=== PATIENT | male | born 1945 | race Caucasian/White ===

== ENCOUNTER 2017-03-23 17:35 | Inpatient (IN) | payer MEDICARE, BC ==
[~2017-03-23] VITALS: Ht 177.8 cm; Wt 99.0 kg
[~2017-03-23 17:35] MED LIST: ALBUTEROL S2.5 MG/.5 IN; ALDACTONE25 MG PO; ARICEPT5 MG PO; B-1100 MG PO; B121000 MCG PO; B6 NATURAL100 MG PO; BD PEN NEEDL32 GX4MM SC; CEPHALEXIN500 MG OR; CLARITIN10 M1 OR; CLONIDINE0.1 MG PO; COLCHICINE0.6 MG OR; DONEPEZIL5 MG PO; DOXEPIN HCL10 MG PO; FISH OIL1000 MG PO; FLONASE0.05 %; FOLIC ACID1 MG PO; FREESTYLELITE100 SC; HUMALOG100 MG/ML SC; INDERAL10 M1 PO; INDERAL10 MG PO; JANUVIA100 MG OR; JANUVIA100 MG PO; JANUVIA50 MG OR; LANTUS SOLOSTAR SC; LANTUS100 MG/ML; LANTUS100 MG/ML SC; LASIX 20 MG20 MG/TAB PO; LEVOTHYROXIN50 MCG OR; LEVOTHYROXIN50 MCG PO; LOPRESSOR25 MG PO; LUTEIN1 CAP OR; MAGNESIUM300 MG PO; MEDDOSEPAK PO; METFORMIN850 MG PO; METOPROL TAR25 M1 OR; METOPROL TAR25 M1 PO; METOPROLOL TART50 MG PO; METOPROLOL50 MG OR; MULTIVITAL-M OR; NAMENDA10 MG PO; NIACIN250 M4 PO; NOVOLO1 SC; PAROXETINE20 MG OR; PAROXETINE20 MG PO; PENTOXIFYLLI400 MG PO; PROTONIX40 MG OR; TESTIM1 % EX; ULORIC40 MG PO; VALIUM10 MG OR; VITAMIN B 12100 MCG OR; [UNRECOGNIZED DRUG - CODE] SC; [UNRECOGNIZED DRUG - OTHER] SC; [UNRECOGNIZED DRUG - SUPPLY] SC
[2017-03-23 18:12] VITALS: BP 114/70; BP 117/70
--- NOTE | 2017-03-23 19:20 | NUR ---
PT.RESTING IN BED W/FAMILY AT BS; DENIES ANY DISTRESS OR DISCOMFORT AT THIS TIME; DENIES N/V; POC DISCUSSED, JUST LEFT SEEING PT.; WILL F/UP W/ASSESSMENT/ADMISSION
[2017-03-23 19:55] LABS: HEMATOCRIT 33.2 % (39.0-50.0); HEMOGLOBIN 10.7 g/dl (14.0-18.0); IMMATURE GRANULOCYTES 0.7 % (0.0-1.0); MEAN CORPUSCULAR HGB 29.3 pG CALC (26.0-32.0); MEAN CORPUSCULAR HGB CONC 32.2 g/L CALC (32.0-36.0); NEUT# 8.72 thou/uL (1.82-7.42); RED BLOOD COUNT 3.65 mill/uL (4.70-6.10)
[2017-03-23 20:10] LABS: ALBUMIN 3.5 g/dL (3.2-5.0); ALKALINE PHOSPHATASE 95 u/l (38-126); ANION GAP 19 (6-22 (CALC)); BILIRUBIN, TOTAL 1.7 mg/dL (0.0-1.4); BUN 60 mg/dL (8-23); BUN/CREATININE RATIO 52 (12-20 (CALC)); CALCIUM 9.6 mg/dL (8.4-10.2); CARBON DIOXIDE 22 mmol/l (22-30); CHLORIDE 105 mmol/l (95-108); CREATININE 1.2 mg/dL (0.7-1.3); GFR 60 ML/MIN (>=60 (CALC)); GFR FOR AFR.AMER. > 60 ML/MIN (>=60 (CALC)); GLUCOSE 161 mg/dL (82-115); SGOT/AST 35 u/l (19-48); SGPT/ALT 33 u/l (11-66); SODIUM 140 mmol/l (137-146); TOTAL PROTEIN 7.8 g/dL (6.3-8.2)
[2017-03-23 20:11] LABS: POTASSIUM 5.5 mmol/l (3.5-5.1)
--- NOTE | 2017-03-23 20:25 | NUR ---
PT.ASSESSED,POC DISCUSSED W/PT., NO DISTRESS AT THIS TIME, DENIES ANY NEEDS; FAMILY NO LONGER AT BS
[2017-03-24] VITALS (10 sets, daily range): BP systolic 98–123; BP diastolic 46–68
--- NOTE | 2017-03-24 03:31 | NUR ---
PT.JUST CALLED TO REPORT HE VOMITED BLOOD; PT.VOMITED LARGE AMOUNT OF WHAT APPEARED TO BE COAGULATED BLOOD CLOTS, APPROX.600CC; NG TUBE WILL BE PLACED AND BLOOD ORDERED @2UNITS PER 'S ORDERS; PT.IS NOW BACK IN BE RESTING.
--- NOTE | 2017-03-24 04:36 | NUR ---
NG TUBE PLACED, PT.TOLERATED PROCEDURE WELL, SUCTION SET AT LIS; PT.VOMITED 150CC ADDITIONAL CONGEALED BLOODY EMESIS JUST PRIOR TO PROCEDURE. PT.RESTING NOW, DENIES FURTHER NEEDS, CALL LIGHT W/IN REACH AND PT.INSTRUCTED TO CALL FOR ANY NEEDS THAT MAY ARISE
[2017-03-24 05:17] LABS: ALBUMIN 3.3 g/dL (3.2-5.0); ALKALINE PHOSPHATASE 92 u/l (38-126); AMYLASE 58 u/l (30-110); ANION GAP 18 (6-22 (CALC)); BILIRUBIN, TOTAL 1.4 mg/dL (0.0-1.4); BUN 71 mg/dL (8-23); BUN/CREATININE RATIO 54 (12-20 (CALC)); CALCIUM 9.2 mg/dL (8.4-10.2); CARBON DIOXIDE 20 mmol/l (22-30); CHLORIDE 107 mmol/l (95-108); CREATININE 1.3 mg/dL (0.7-1.3); GFR 54 ML/MIN (>=60 (CALC)); GFR FOR AFR.AMER. > 60 ML/MIN (>=60 (CALC)); GLUCOSE 133 mg/dL (82-115); LIPASE 152 u/l (23-300); SGOT/AST 33 u/l (19-48); SGPT/ALT 33 u/l (11-66); SODIUM 139 mmol/l (137-146); TOTAL PROTEIN 7.5 g/dL (6.3-8.2)
[2017-03-24 05:19] LABS: POTASSIUM 5.6 mmol/l (3.5-5.1)
[2017-03-24 05:24] LABS: HEMATOCRIT 27.8 % (39.0-50.0); HEMOGLOBIN 9.2 g/dl (14.0-18.0); IMMATURE GRANULOCYTES 0.5 % (0.0-1.0); MEAN CELL VOLUME 89.7 fL CALC (80.0-100.0); MEAN CORPUSCULAR HGB 29.7 pG CALC (26.0-32.0); MEAN CORPUSCULAR HGB CONC 33.1 g/L CALC (32.0-36.0); NEUT# 9.45 thou/uL (1.82-7.42); RED BLOOD COUNT 3.1 mill/uL (4.70-6.10); RED CELL DISTRI WIDTH 16.1 % (11.5-15.5)
[2017-03-24 05:27] LABS: ACT PARTIAL THROMBO TIME 29.4 SECONDS (20.0-32.5); INTERNATIONAL NORMALIZED RATIO 1.2 RATIO (0.7-1.3); PROTHROMBIN TIME 12.9 SECONDS (9.0-12.5)
--- NOTE | 2017-03-24 05:30 | NUR ---
PT.UP TO BSC, LARGE BLACK STOOL OBSERVED; PT.BACK TO BED W/NGT SUCTIONING LIS DARK THICK FLUID; CALL LIGHT W/IN REACH
--- NOTE | 2017-03-24 07:20 | NUR ---
REPORT RECEIVED FROM YAMILEX MENDIOLA. PT SITTING IN SEMI-FOWLERS POSITION. NGT TO LIWS, DRAINING MAROON FLUID. PT DENIES PAIN. NO NAUSEA. REPORTING OF CONCERNS ENCOURAGED. PLAN OF CARE DISCUSSED. CALL LIGHT REVIEWED AND IN REACH. PT STATES UNDERSTANDING.
--- NOTE | 2017-03-24 08:45 | NUR ---
200 ML EMESIS OF BLOOD W/ CLOTS AT THIS TIME.
--- NOTE | 2017-03-24 09:24 | NUR ---
1ST UNIT OF PRBC'S STARTED AT THIS TIME. PT EDUCATED ON POSSIBLE S/S OF REACTION TO TRANSFUSION. PT STATES UNDERSTANDING. COMMUNICATION INSTRUCTOR AT BEDSIDE FOR MONITORING.
--- NOTE | 2017-03-24 10:25 | NUR ---
PT DENIES S/S OF REACTION TO TRANSFUSION. NO SOB NOTED. WILL CONTINUE TO MONITOR.
--- NOTE | 2017-03-24 11:58 | NUR ---
2ND UNIT OF PRBC'S STARTED AT THIS TIME. NO SOB NOTED. PT DENIES PAIN. WILL CONTINUE TO MONITOR.
--- NOTE | 2017-03-24 15:25 | NUR ---
2ND UNIT PRBC'S FINISHED. PT TOLERATED WELL. SLEEPING AT THIS TIME. WILL CONTINUE TO MONITOR.
[2017-03-24 16:22] LABS: HEMATOCRIT 31.1 % (39.0-50.0); IMMATURE GRANULOCYTES 0.6 % (0.0-1.0); MEAN CELL VOLUME 90.7 fL CALC (80.0-100.0); MEAN CORPUSCULAR HGB 29.2 pG CALC (26.0-32.0); MEAN CORPUSCULAR HGB CONC 32.2 g/L CALC (32.0-36.0); NEUT# 6.16 thou/uL (1.82-7.42); RED BLOOD COUNT 3.43 mill/uL (4.70-6.10)
[2017-03-24 16:31] LABS: CALCIUM 8.8 mg/dL (8.4-10.2); CREATININE 1.5 mg/dL (0.7-1.3)
[2017-03-24 16:43] LABS: POTASSIUM 5.4 mmol/l (3.5-5.1)
--- NOTE | 2017-03-24 17:30 | NUR ---
PT SLEEPING. VISITOR AT BEDSIDE. STILL AWAITING BED ASSIGNMENT FROM [facility].
[2017-03-24 20:15] LABS: HEMATOCRIT 30.6 % (39.0-50.0); IMMATURE GRANULOCYTES 0.6 % (0.0-1.0); MEAN CELL VOLUME 89.2 fL CALC (80.0-100.0); MEAN CORPUSCULAR HGB 29.2 pG CALC (26.0-32.0); MEAN CORPUSCULAR HGB CONC 32.7 g/L CALC (32.0-36.0); NEUT# 5.91 thou/uL (1.82-7.42); RED BLOOD COUNT 3.43 mill/uL (4.70-6.10); RED CELL DISTRI WIDTH 16.2 % (11.5-15.5)
--- NOTE | 2017-03-24 21:00 | NUR ---
PT APPEARS TO BE SLEEPING IN SEMI FOWLERS POSITION;PT WAKES EASILY;CONTACT PRECAUTIONS IN PLACE FOR MRSA;IV SITE INFUSING WELL TO RT WRIST;IV SITE TO RT FOREARM FLUSHED AND PATENT;PT DENIES ANY PAIN OR NAUSEA AT THIS TIME;PLACEMENT CHECKED ON NG TUBE WHICH IS HOOKED UP TO LIS;BROWN/GREEN DRAINAGE NOTED;TELE MONITOR IN PLACE;ASSESSMENT COMPLETED;MRSA SWAB COLLECTED FROM LEFT NARE;PT DENIES ANY NEEDS AT THIS TIME;PT EDUCATED TO CALL FOR ASSISTANCE IF NEEDED;BED IN LOWEST POSITION WITH CALL LIGHT IN REACH;WILL CONTINUE TO MONITOR
--- NOTE | 2017-03-24 22:15 | NUR ---
CALL RECEIVED FROM TRANSFER CENTER;PT TO BE TRANSFERED TO [facility] ROOM 210 BED 1;PT NOTIFIED AND VERBALIZES UNDERSTANDING
--- NOTE | 2017-03-24 23:12 | NUR ---
PT TRANSFERRED VIA STRETCHER IN STABLE CONDITION WITH [facility] AT THIS TIME
== END 2017-03-24 23:15 | DRG 378 ==
LOC: MS2 17:35
PROVIDERS: ADMIT Internal Medicine Geriatric Medicine; ATTEND Internal Medicine Geriatric Medicine
PROC: 30233N1 Transfusion of Nonautologous Red Blood Cells into Peripheral Vein, Percutaneous Approach (ICD-10-PCS; principal; 2017-03-24)
PROC: 30233N1 Transfusion of Nonautologous Red Blood Cells into Peripheral Vein, Percutaneous Approach (ICD-10-PCS; 2017-03-24)
PROC: 0D9670Z Drainage of Stomach with Drainage Device, Via Natural or Artificial Opening (ICD-10-PCS; 2017-03-24)
DX: K92.0 Hematemesis (principal); K76.6 Portal hypertension; E11.22 Type 2 diabetes mellitus with diabetic chronic kidney disease; E11.43 Type 2 diabetes mellitus with diabetic autonomic (poly)neuropathy; K31.84 Gastroparesis; D69.59 Other secondary thrombocytopenia; I12.9 Hypertensive chronic kidney disease with stage 1 through stage 4 chronic kidney disease, or unspecified chronic kidney disease; N18.9 Chronic kidney disease, unspecified; K70.30 Alcoholic cirrhosis of liver without ascites; K92.1 Melena; I85.10 Secondary esophageal varices without bleeding; M19.90 Unspecified osteoarthritis, unspecified site; I25.10 Atherosclerotic heart disease of native coronary artery without angina pectoris; Z87.11 Personal history of peptic ulcer disease
CPT/HCPCS: J2354; P9016; S0164

== ENCOUNTER 2017-04-01 10:55 | Inpatient (IN) | payer MEDICARE, BC ==
[~2017-04-01] VITALS: Ht 180.3 cm; Wt 99.6 kg
--- NOTE | 2017-04-01 11:11 | NUR ---
PT ARRIVED TO FLOOR VIA WHEELCHAIR ACCOMPANIED BY VOLUNTEER. PT AMBULATES TO BED. STEADY GAIT. GENERALIZED WEAKNESS REPORTED. FALL PRECAUTIONS REINFORCED. PLAN OF CARE DISCUSSED. PT DENIES PAIN. REPORTING OF CONCERNS ENCOURAGED. CALL LIGHT REVIEWED AND IN REACH. PT STATES UNDERSTANDING.
[2017-04-01 11:21] VITALS: BP 122/68
[2017-04-01] MEDS ORDERED: ALDACTONE25 MG PO (11:34)
[2017-04-01] MEDS ORDERED: PAROXETINE20 MG PO (11:38)
[2017-04-01] MEDS ORDERED: FOLIC ACID1 MG PO (11:40)
[2017-04-01] MEDS ORDERED: FERROUS SULF325 M3 PO (11:40)
[2017-04-01] MEDS ORDERED: KRISTALOSE20 GM PO (11:41)
[2017-04-01] MEDS ORDERED: PROTONIX40 M2 PO (11:42)
[2017-04-01] MEDS ORDERED: MULTIVITAMI9 PO (11:42)
[2017-04-01] MEDS ORDERED: PRANDIN1 MG PO (11:43)
[2017-04-01] MEDS ORDERED: HUMALOG100 MG/ML SC (11:47)
[2017-04-01 11:59] LABS: HEMATOCRIT 30.7 % (39.0-50.0); HEMATOCRIT 31.1 % (39.0-50.0); HEMOGLOBIN 10.1 g/dl (14.0-18.0); IMMATURE GRANULOCYTES 0.4 % (0.0-1.0); MEAN CORPUSCULAR HGB 29.3 pG CALC (26.0-32.0); MEAN CORPUSCULAR HGB CONC 32.6 g/L CALC (32.0-36.0); NEUT# 6.91 thou/uL (1.82-7.42); RED BLOOD COUNT 3.41 mill/uL (4.70-6.10); RED CELL DISTRI WIDTH 17.6 % (11.5-15.5)
[2017-04-01 12:09] LABS: ANION GAP 14 (6-22 (CALC)); BUN 30 mg/dL (8-23); BUN/CREATININE RATIO 26 (12-20 (CALC)); CALCIUM 8.7 mg/dL (8.4-10.2); CARBON DIOXIDE 24 mmol/l (22-30); CHLORIDE 104 mmol/l (95-108); CREATININE 1.2 mg/dL (0.7-1.3); GFR 60 ML/MIN (>=60 (CALC)); GFR FOR AFR.AMER. > 60 ML/MIN (>=60 (CALC)); GLUCOSE 152 mg/dL (82-115); POTASSIUM 4.2 mmol/l (3.5-5.1); SODIUM 137 mmol/l (137-146)
[2017-04-01 16:15] LABS: URINE BILIRUBIN - DIPSTICK NEGATIVE (NEGATIVE); URINE BLOOD DIPSTICK NEGATIVE (NEGATIVE); URINE CLARITY CLEAR; URINE COLOR YELLOW; URINE GLUCOSE - DIPSTICK NEGATIVE (NEGATIVE); URINE KETONE NEGATIVE (NEGATIVE); URINE LEUK ESTERASE NEGATIVE (NEGATIVE); URINE NITRITE - DIPSTICK NEGATIVE (Negative); URINE PROTEIN - DIPSTICK NEGATIVE (NEG-TRACE)
[2017-04-01 16:16] VITALS: BP 126/71
[2017-04-01 17:31] LABS: HEMATOCRIT 30.1 % (39.0-50.0); HEMOGLOBIN 9.9 g/dl (14.0-18.0)
[2017-04-01 18:25] LABS: ALKALINE PHOSPHATASE 88 u/l (38-126); ANION GAP 12 (6-22 (CALC)); BILIRUBIN, TOTAL 1.6 mg/dL (0.0-1.4); BUN 28 mg/dL (8-23); BUN/CREATININE RATIO 29 (12-20 (CALC)); CALCIUM 8.2 mg/dL (8.4-10.2); CARBON DIOXIDE 22 mmol/l (22-30); CHLORIDE 105 mmol/l (95-108); GFR > 60 ML/MIN (>=60 (CALC)); GFR FOR AFR.AMER. > 60 ML/MIN (>=60 (CALC)); GLUCOSE 186 mg/dL (82-115); POTASSIUM 4.6 mmol/l (3.5-5.1); SGOT/AST 60 u/l (19-48); SGPT/ALT 38 u/l (11-66); SODIUM 136 mmol/l (137-146); TOTAL PROTEIN 7.2 g/dL (6.3-8.2)
--- NOTE | 2017-04-01 18:33 | NUR ---
PT SITTING UPRIGHT IN BED. DENIES PAIN. NO COMPLAINTS. CALL LIGHT WITHIN REACH.
[2017-04-01 19:15] VITALS: BP 106/65
--- NOTE | 2017-04-01 19:31 | NUR ---
PATIENT SITTING IN BED READING NEWSPAPER AT THIS TIME WITH O2 VIA NASAL CANNULA IN PLACE. ALERT AND ORIENTEDX3. IVF NS PATENT AND INFUSING RIGHT FOREARM. SITE APPEARS HEALTHY AT THIS TIME. CALL LIGHT IN REACH. WILL CONT TO MONITOR.
--- NOTE | 2017-04-01 20:34 | NUR ---
INDERAL HELD DUE TO HR-54 AND BP-[id number]/65. EXPLAINED TO THE PATIENT WHY THE MEDICATION WAS HELD. CALL LIGHT IN REACH. WILL CONT TO MONITOR.
[2017-04-01 23:45] VITALS: BP 92/54
[2017-04-02] VITALS (10 sets, daily range): BP systolic 90–140; BP diastolic 51–72
--- NOTE | 2017-04-02 00:08 | NUR ---
PATIENT SITTING UP ON THE SIDE OF THE BED WITH NO COMPLAINTS AT THIS TIME. VS TAKEN AND RECORDED. IVF PATENT AND INFUSING WELL RIGHT FOREARM SITE. CALL LIGHT IN REACH. WILL CONT TO MONITOR.
--- NOTE | 2017-04-02 02:53 | NUR ---
URINAL EMPTIED FOR 400CC OF MARU URINE. PATIENT PROVIDED WITH ANOTHER BLANKET PEPATIENT REQUEST. CALL LIGHT IN REACH. WILL CONT TO MONITOR.
[2017-04-02 05:43] LABS: ALBUMIN 2.6 g/dL (3.2-5.0); ALKALINE PHOSPHATASE 83 u/l (38-126); ANION GAP 11 (6-22 (CALC)); BUN 25 mg/dL (8-23); BUN/CREATININE RATIO 24 (12-20 (CALC)); CALCIUM 8.1 mg/dL (8.4-10.2); CARBON DIOXIDE 23 mmol/l (22-30); CHLORIDE 109 mmol/l (95-108); GFR > 60 ML/MIN (>=60 (CALC)); GFR FOR AFR.AMER. > 60 ML/MIN (>=60 (CALC)); GLUCOSE 148 mg/dL (82-115); POTASSIUM 4.3 mmol/l (3.5-5.1); SGOT/AST 28 u/l (19-48); SGPT/ALT 33 u/l (11-66); SODIUM 138 mmol/l (137-146); TOTAL PROTEIN 6.5 g/dL (6.3-8.2)
[2017-04-02 05:59] LABS: HEMATOCRIT 26.1 % (39.0-50.0); HEMOGLOBIN 8.4 g/dl (14.0-18.0); IMMATURE GRANULOCYTES 0.5 % (0.0-1.0); MEAN CELL VOLUME 90.3 fL CALC (80.0-100.0); MEAN CORPUSCULAR HGB 29.1 pG CALC (26.0-32.0); MEAN CORPUSCULAR HGB CONC 32.2 g/L CALC (32.0-36.0); NEUT# 3.98 thou/uL (1.82-7.42); RED BLOOD COUNT 2.89 mill/uL (4.70-6.10); RED CELL DISTRI WIDTH 17.2 % (11.5-15.5)
--- NOTE | 2017-04-02 07:22 | NUR ---
PT TO CT VIA WC ACCOMPANIED BY STAFF;
--- NOTE | 2017-04-02 07:40 | NUR ---
PT RETURN FROM RADIOLOGY VIA WC ACCOMPANIED BY STAFF; AMBULATORY TO BED WITHOUT DIFFICULTY; PT DENIES PAIN; TELE MONITOR IN PLACE; CALL ROMAN WITHIN REACH; WILL CONTINUE TO MONITOR.
--- NOTE | 2017-04-02 08:32 | NUR ---
DR. MARTIN IN TO SEE PT; PLAN OF CARE DISCUSSED.
--- NOTE | 2017-04-02 11:08 | NUR ---
PRBC INFUSION STARTED AT THIS TIME; INSTRUCTED PT ON S/SX OF REACTION; PT VERBALIZE UNDERSTANDING OF SAME; CALL ROMAN WITHIN REACH; WILL CONTINUE TO MONITOR.
--- NOTE | 2017-04-02 13:18 | NUR ---
FIRST UNIT PRBC COMPLETE; PT DENIES PAIN, SOB; VSS; TELE MONITOR IN PLACE; CALL ROMAN WITHIN REACH; WILL CONTINUE TO MONITOR.
--- NOTE | 2017-04-02 13:33 | NUR ---
SECOND UNIT PRBC INFUSION STARTED AT THIS TIME; REINFORCED TO PT S/SX OF REACTION; PT VERBALIZE UNDERSTANDING OF SAME; CALL ROMAN WITHIN REACH; WILL CONTINUE TO MONITOR.
--- NOTE | 2017-04-02 16:26 | NUR ---
PT HAVING 2ND UNIT OF BLOOD TOLERATING WELL IV SITE IS FREE FROM REDNESS OR EDEMA. CONTINUE TO OBSERVE AND MONITOR.
--- NOTE | 2017-04-02 19:45 | NUR ---
PT. SITTING UP IN BED WITH NO DISTRESS NOTED. ASSESSMENT COMPLETED. IV SITE PATENT TO RFA AND ORDERED IVF INFUSING. PT. DENIES NEEDS/PAIN. UPDATED WITH POC. ENCOURAGED TO CALL FOR ANY NEEDS. CALL LIGHT IS IN REACH. WILL CONTINUE TO MONITOR.
--- NOTE | 2017-04-02 23:00 | NUR ---
PT. RESTING IN BED ON RIGHT SIDE WITH EYES CLOSED, NO DISTRESS NOTED. RESP EVEN AND UNLABORED. CALL LIGHT IS IN REACH.
[2017-04-03 00:05] VITALS: BP 100/49
--- NOTE | 2017-04-03 03:20 | NUR ---
PT. RESTING IN BED WITH EYES CLOSED, NO DISTRESS NOTED. RESP EVEN AND UNLABORED. CALL LIGHT IS IN REACH. WILL CONTINUE TO MONITOR.
[2017-04-03 05:00] VITALS: BP 102/61
[2017-04-03 05:39] LABS: HEMATOCRIT 31.2 % (39.0-50.0); HEMOGLOBIN 10.3 g/dl (14.0-18.0); IMMATURE GRANULOCYTES 0.3 % (0.0-1.0); MEAN CELL VOLUME 89.1 fL CALC (80.0-100.0); MEAN CORPUSCULAR HGB 29.4 pG CALC (26.0-32.0); NEUT# 4.39 thou/uL (1.82-7.42); RED BLOOD COUNT 3.5 mill/uL (4.70-6.10)
[2017-04-03 05:46] LABS: ACT PARTIAL THROMBO TIME 29.4 SECONDS (20.0-32.5); INTERNATIONAL NORMALIZED RATIO 1.1 RATIO (0.7-1.3); PROTHROMBIN TIME 12.4 SECONDS (9.0-12.5)
[2017-04-03 06:49] LABS: ALBUMIN 2.6 g/dL (3.2-5.0); ALKALINE PHOSPHATASE 101 u/l (38-126); ANION GAP 9 (6-22 (CALC)); BILIRUBIN, TOTAL 1.6 mg/dL (0.0-1.4); BUN 25 mg/dL (8-23); BUN/CREATININE RATIO 27 (12-20 (CALC)); CALCIUM 8.3 mg/dL (8.4-10.2); CARBON DIOXIDE 21 mmol/l (22-30); CHLORIDE 111 mmol/l (95-108); CREATININE 0.9 mg/dL (0.7-1.3); GFR > 60 ML/MIN (>=60 (CALC)); GFR FOR AFR.AMER. > 60 ML/MIN (>=60 (CALC)); GLUCOSE 141 mg/dL (82-115); POTASSIUM 4.2 mmol/l (3.5-5.1); SGOT/AST 31 u/l (19-48); SGPT/ALT 29 u/l (11-66); SODIUM 137 mmol/l (137-146); TOTAL PROTEIN 6.6 g/dL (6.3-8.2)
--- NOTE | 2017-04-03 07:05 | NUR ---
REPORT RECEIVED FROM ORESTES PERALTA NURSE. PT.UPRIGHT IN BED AWAKE, DENIES ANY NEEDS AT THIS TIME.
[2017-04-03 08:00] VITALS: BP 128/63
--- NOTE | 2017-04-03 08:07 | NUR ---
PT.MEDICATED W/MORNING MEDICATIONS AND ASSESSED; SITTING ON BEDSIDE W/BREAKFAST AND FAMILY JUST ARRIVED AT BS.
[2017-04-03] MEDS ORDERED: LEVOTHYROXIN50 MCG PO (14:25)
[2017-04-03] MEDS ORDERED: ULORIC40 MG PO (14:25)
[2017-04-03] MEDS ORDERED: NIACIN250 M4 PO (14:25)
[2017-04-03 14:39] VITALS: BP 106/56
[2017-04-03 14:41] VITALS: BP 106/56
--- NOTE | 2017-04-03 16:10 | NUR ---
PT.OFF FLOOR ACCOMPANIED BY FAMILY AND ANTON MCGILL. PT.IS STABLE AT TIME OF DC AND TRANSPORTED VIA WC
== END 2017-04-03 16:09 | disposition home or self-care (01) | DRG 433 ==
LOC: ENPENDDIS → MS2 10:55
PROVIDERS: ADMIT Internal Medicine Geriatric Medicine; ATTEND Internal Medicine Geriatric Medicine
PROC: 30233N1 Transfusion of Nonautologous Red Blood Cells into Peripheral Vein, Percutaneous Approach (ICD-10-PCS; principal; 2017-04-02)
PROC: 30233N1 Transfusion of Nonautologous Red Blood Cells into Peripheral Vein, Percutaneous Approach (ICD-10-PCS; 2017-04-02)
PROC: 0W993ZZ Drainage of Right Pleural Cavity, Percutaneous Approach (ICD-10-PCS; 2017-04-03)
DX: K74.60 Unspecified cirrhosis of liver (principal); N17.9 Acute kidney failure, unspecified; J91.8 Pleural effusion in other conditions classified elsewhere; I85.10 Secondary esophageal varices without bleeding; K76.6 Portal hypertension; E86.0 Dehydration; D50.0 Iron deficiency anemia secondary to blood loss (chronic); E11.22 Type 2 diabetes mellitus with diabetic chronic kidney disease; I12.9 Hypertensive chronic kidney disease with stage 1 through stage 4 chronic kidney disease, or unspecified chronic kidney disease; N18.9 Chronic kidney disease, unspecified; I25.10 Atherosclerotic heart disease of native coronary artery without angina pectoris; M19.90 Unspecified osteoarthritis, unspecified site
CPT/HCPCS: G0378; G0379; P9016

== ENCOUNTER 2017-04-12 13:45 | Inpatient (IN) | payer MEDICARE, BC ==
[~2017-04-12] VITALS: Ht 177.8 cm; Wt 99.0 kg
[2017-04-12] VITALS (12 sets, daily range): BP systolic 82–148; BP diastolic 44–77
[~2017-04-12 13:45] MED LIST changes: +FERROUS SULF325 M3 PO; +KRISTALOSE20 GM PO; +MULTIVITAMI9 PO; +PRANDIN1 MG PO; +PROTONIX40 M2 PO
[2017-04-12 17:34] LABS: HEMATOCRIT 30.9 % (39.0-50.0); HEMOGLOBIN 9.9 g/dl (14.0-18.0); MEAN CELL VOLUME 92.2 fL CALC (80.0-100.0); MEAN CORPUSCULAR HGB 29.6 pG CALC (26.0-32.0); RED BLOOD COUNT 3.35 mill/uL (4.70-6.10); RED CELL DISTRI WIDTH 17.4 % (11.5-15.5)
[2017-04-12 17:48] LABS: INTERNATIONAL NORMALIZED RATIO 1.1 RATIO (0.7-1.3); PROTHROMBIN TIME 12.1 SECONDS (9.0-12.5)
[2017-04-12 17:49] LABS: ALBUMIN 3.3 g/dL (3.2-5.0); ALKALINE PHOSPHATASE 144 u/l (38-126); ANION GAP 15 (6-22 (CALC)); BILIRUBIN, TOTAL 1.3 mg/dL (0.0-1.4); BUN 34 mg/dL (8-23); BUN/CREATININE RATIO 29 (12-20 (CALC)); CALCIUM 9.1 mg/dL (8.4-10.2); CARBON DIOXIDE 22 mmol/l (22-30); CHLORIDE 105 mmol/l (95-108); CREATININE 1.2 mg/dL (0.7-1.3); GFR 60 ML/MIN (>=60 (CALC)); GFR FOR AFR.AMER. > 60 ML/MIN (>=60 (CALC)); GLUCOSE 214 mg/dL (82-115); POTASSIUM 4.9 mmol/l (3.5-5.1); SGOT/AST 46 u/l (19-48); SGPT/ALT 44 u/l (11-66); SODIUM 137 mmol/l (137-146); TOTAL PROTEIN 7.6 g/dL (6.3-8.2)
[2017-04-13] VITALS (26 sets, daily range): BP systolic 99–150; BP diastolic 42–76
[2017-04-13 06:28] LABS: HEMOGLOBIN 11.1 g/dl (14.0-18.0); IMMATURE GRANULOCYTES 0.4 % (0.0-1.0); MEAN CELL VOLUME 92.9 fL CALC (80.0-100.0); MEAN CORPUSCULAR HGB 30.3 pG CALC (26.0-32.0); MEAN CORPUSCULAR HGB CONC 32.6 g/L CALC (32.0-36.0); NEUT# 5.77 thou/uL (1.82-7.42); RED BLOOD COUNT 3.66 mill/uL (4.70-6.10)
[2017-04-13 06:38] LABS: ALBUMIN 2.8 g/dL (3.2-5.0); ALKALINE PHOSPHATASE 121 u/l (38-126); ANION GAP 13 (6-22 (CALC)); BILIRUBIN, TOTAL 1.2 mg/dL (0.0-1.4); BUN 39 mg/dL (8-23); BUN/CREATININE RATIO 32 (12-20 (CALC)); CALCIUM 8.8 mg/dL (8.4-10.2); CARBON DIOXIDE 22 mmol/l (22-30); CHLORIDE 109 mmol/l (95-108); CREATININE 1.2 mg/dL (0.7-1.3); GFR 60 ML/MIN (>=60 (CALC)); GFR FOR AFR.AMER. > 60 ML/MIN (>=60 (CALC)); GLUCOSE 144 mg/dL (82-115); POTASSIUM 4.9 mmol/l (3.5-5.1); SGOT/AST 38 u/l (19-48); SGPT/ALT 38 u/l (11-66); SODIUM 138 mmol/l (137-146); TOTAL PROTEIN 6.8 g/dL (6.3-8.2)
[2017-04-13 13:17] LABS: HEMATOCRIT 32.6 % (39.0-50.0); HEMOGLOBIN 10.6 g/dl (14.0-18.0); IMMATURE GRANULOCYTES 0.4 % (0.0-1.0); MEAN CELL VOLUME 93.1 fL CALC (80.0-100.0); MEAN CORPUSCULAR HGB 30.3 pG CALC (26.0-32.0); MEAN CORPUSCULAR HGB CONC 32.5 g/L CALC (32.0-36.0); NEUT# 5.19 thou/uL (1.82-7.42); RED BLOOD COUNT 3.5 mill/uL (4.70-6.10); RED CELL DISTRI WIDTH 17.1 % (11.5-15.5)
[2017-04-13 13:19] LABS: ANION GAP 14 (6-22 (CALC)); BUN 39 mg/dL (8-23); BUN/CREATININE RATIO 32 (12-20 (CALC)); CALCIUM 8.6 mg/dL (8.4-10.2); CARBON DIOXIDE 21 mmol/l (22-30); CHLORIDE 109 mmol/l (95-108); CREATININE 1.2 mg/dL (0.7-1.3); GFR 60 ML/MIN (>=60 (CALC)); GFR FOR AFR.AMER. > 60 ML/MIN (>=60 (CALC)); GLUCOSE 137 mg/dL (82-115); POTASSIUM 4.7 mmol/l (3.5-5.1); SODIUM 139 mmol/l (137-146)
[2017-04-14] VITALS (9 sets, daily range): BP systolic 110–144; BP diastolic 51–78
[2017-04-14 04:27] LABS: HEMATOCRIT 32.1 % (39.0-50.0); HEMOGLOBIN 10.7 g/dl (14.0-18.0); IMMATURE GRANULOCYTES 0.4 % (0.0-1.0); MEAN CORPUSCULAR HGB 30.7 pG CALC (26.0-32.0); MEAN CORPUSCULAR HGB CONC 33.3 g/L CALC (32.0-36.0); NEUT# 5.22 thou/uL (1.82-7.42); RED BLOOD COUNT 3.49 mill/uL (4.70-6.10); RED CELL DISTRI WIDTH 17.1 % (11.5-15.5)
[2017-04-14 04:48] LABS: ALBUMIN 3.1 g/dL (3.2-5.0); ALKALINE PHOSPHATASE 133 u/l (38-126); ANION GAP 14 (6-22 (CALC)); BILIRUBIN, TOTAL 1.7 mg/dL (0.0-1.4); BUN 33 mg/dL (8-23); BUN/CREATININE RATIO 29 (12-20 (CALC)); CALCIUM 8.6 mg/dL (8.4-10.2); CARBON DIOXIDE 22 mmol/l (22-30); CHLORIDE 107 mmol/l (95-108); CREATININE 1.1 mg/dL (0.7-1.3); GFR > 60 ML/MIN (>=60 (CALC)); GFR FOR AFR.AMER. > 60 ML/MIN (>=60 (CALC)); GLUCOSE 225 mg/dL (82-115); POTASSIUM 4.2 mmol/l (3.5-5.1); SGOT/AST 38 u/l (19-48); SGPT/ALT 40 u/l (11-66); SODIUM 138 mmol/l (137-146); TOTAL PROTEIN 7.3 g/dL (6.3-8.2)
== END 2017-04-14 12:05 | disposition home or self-care (01) | DRG 432 ==
LOC: ENPENDDIS → MS2 13:45 → ICU 13:45
PROVIDERS: ADMIT Internal Medicine Geriatric Medicine; ATTEND Internal Medicine Geriatric Medicine
PROC: 30233N1 Transfusion of Nonautologous Red Blood Cells into Peripheral Vein, Percutaneous Approach (ICD-10-PCS; principal; 2017-04-12)
PROC: 0D9670Z Drainage of Stomach with Drainage Device, Via Natural or Artificial Opening (ICD-10-PCS; 2017-04-12)
PROC: 30233N1 Transfusion of Nonautologous Red Blood Cells into Peripheral Vein, Percutaneous Approach (ICD-10-PCS; 2017-04-13)
DX: K70.30 Alcoholic cirrhosis of liver without ascites (principal); I85.11 Secondary esophageal varices with bleeding; K76.6 Portal hypertension; E11.22 Type 2 diabetes mellitus with diabetic chronic kidney disease; D62 Acute posthemorrhagic anemia; I13.0 Hypertensive heart and chronic kidney disease with heart failure and stage 1 through stage 4 chronic kidney disease, or unspecified chronic kidney disease; I50.9 Heart failure, unspecified; N18.9 Chronic kidney disease, unspecified; I25.10 Atherosclerotic heart disease of native coronary artery without angina pectoris; M19.90 Unspecified osteoarthritis, unspecified site; I86.4 Gastric varices
CPT/HCPCS: J2060; J2354; P9016; S0164